=== PATIENT | female | born 1965 | race Caucasian/White ===

== ENCOUNTER 2022-04-12 15:11 | Emergency (ER) | payer OTHER, SELFPAY ==
--- NOTE | ~2022-04-12 | XR_ITS ---
EXAMINATION: XR chest 1V CLINICAL INFORMATION: Reason for Exam pain COMPARISON: None TECHNIQUE: 2 views of the chest FINDINGS: Clear lungs. No pneumothorax or pleural effusion. Normal cardiomediastinal silhouette. XR/XR chest 1V Impression: * Clear lungs.
[2022-04-12 15:13] VITALS: BP 192/89; PULSE 116; RESP 18; TEMP 36.9; O2SAT 98; BMI 29.2
--- NOTE | 2022-04-12 15:15 | ECG_ITS ---
Test Reason : WEAKESS Blood Pressure : / mmHG Vent. Rate : 100 BPM Atrial Rate : 100 BPM P-R Int : 134 ms QRS Dur : 076 ms QT Int : 326 ms P-R-T Axes : 046 002 056 degrees QTc Int : 420 ms Normal sinus rhythm Cannot rule out Inferior infarct , age undetermined Abnormal ECG No previous ECGs available Referred By: Generic ED Physician Electronically Signed By:Major White
[2022-04-12 15:31] LABS: Red Cell Distribution Width 17.2 % (11.0-16.0)
[2022-04-12 15:33] LABS: Hematocrit 37.9 % (37.0-47.0); Hemoglobin 11.7 g/dl (12.0-16.0); Mean Corpuscular HGB Conc 30.9 g/dl (31.0-35.0); Mean Corpuscular Volume 68.2 fL (80.0-98.0); Mean Platelet Volume 11.3 fL (9.4-12.3); Red Blood Count 5.56 X10*6/uL (4.20-5.50)
[2022-04-12 15:44] LABS: PLT ABN DIST 1
[2022-04-12 15:50] LABS: Anion Gap 14 (12-20); Blood Urea Nitrogen 10 mg/dL (9-16); Calcium 9.8 mg/dL (8.4-10.2); Carbon Dioxide 25 mmol/L (22-29); Chloride 104 mmol/L (96-108); Creatinine Clr Calc Pharmacy 72.9; Estimated Glomerular Filt Rate > 60; Glucose Random 114 mg/dL (60-115); Potassium 4.4 mmol/L (3.3-5.1); Sodium 139 mmol/L (135-145)
[2022-04-12 15:58] LABS: Platelet Count 313 X10*3/uL (160-400); Troponin-I High Sensitivity 5.1 ng/L (<3.5-17.0); White Blood Count 9.9 X10*3/uL (4.8-10.8)
--- NOTE | 2022-04-12 17:59 | ED.CHESTPAIN ---
HPI - Chest Pain General Chief Complaint: Chest Pain Stated Complaint: chest pain Time Seen by Provider: 04/12/22 17:59 Source: patient Mode of arrival: ambulatory Limitations: no limitations History of Present Illness MD complaint: chest heaviness Onset (ago): day(s) (3) Timing of current episode: constant Prior episodes: No Onset: during rest Pain location: substernal Pain radiation: none Severity: moderate Quality: heaviness Relieving factors: nothing Exacerbating factors: stress Context: other (recent emotional stress) Associated symptoms: dyspnea and other (restless legs and leg cramping at night) Treatment prior to arrival: none Related Data Previous Rx's Medication Instructions Recorded lorazepam 0.5 mg tablet (Ativan) 0.5 mg PO BEDTIME PRN sleep #3 tabs 04/12/22 Allergies Allergy/AdvReac Type Severity Reaction Status Date / Time Unable to Assess Allergy Verified 04/12/22 18:01 Review of Systems Review of Systems: Constitutional : No Weight loss, No Fever, No Chills ENT/Mouth : No sore throat, No Rhinorrhea Eyes: No Eye Pain, No Swelling Cardiovascular : pos Chest Pain, no SOB, no Dyspnea on Exertion, No Orthopnea, No Edema, No Palpitations Respiratory : No Cough, No Sputum Gastrointestinal : pos Nausea, No Vomiting, No Diarrhea, No abdominal Pain, No Hematochezia, No Melena Genitourinary : No Dysuria, No Urinary Frequency Musculoskeletal : No joint pain, pos Myalgias, No Joint Swelling Skin : No Skin Lesions, No rash Neuro : No Weakness, No Numbness, No Dizziness, No Headache Psych : pos Anxiety/Panic, No Depression Heme/Lymph: No Bruising, No Lymphadenopathy Endocrine : No Polyuria, No Polydipsia All other systems reviewed and are negative [facility] Past Medical History Attestation statement: The following information was validated with the patient. Medical History GERD (gastroesophageal reflux disease) Social History Social History (Updated 04/12/22 @ 18:33 by Cecille Chapin DO) Patient Tobacco Use Status: Never used Tobacco Advance Directives: No Advance Directives Information Provided: No Physical Exam Vital Signs: Vital Signs: Last Vital Signs Temp 99.5 F 04/12/22 18:54 Pulse 90 04/12/22 18:54 Resp 18 04/12/22 18:54 BP 162/72 H 04/12/22 18:54 Pulse Ox 97 04/12/22 18:54 O2 Del Method 04/12/22 18:54 BMI result Body Mass Index 29.2 Appearance: Alert. Oriented X3. No acute distress. Appears anxious Eyes: Pupils equal, round and reactive to light. ENT: Pharynx normal. Neck: Normal inspection. Neck supple. CVS: Normal heart rate and rhythm. Pulses normal. Respiratory: No respiratory distress. Breath sounds normal. Abdomen: Soft and nontender. Skin: Skin warm and dry. Normal skin color. Normal skin turgor. Extremities: No lower extremity edema. No calf ttp Neuro: Oriented X 3. No motor deficit. No sensory deficit. Course Course Course Narrative: nonischemic EKG, trop flat x 2 with 3 days of symptoms ddimer flat, BP down feels better stable for DC MDM - Chest Pain MDM Narrative Medical decision making narrative: 56 yo female with hx of GERD under stress at home - reports chest heaviness x 3 days that is constant and notes it is hard to sleep at night and her legs feels restless. She feels anxious. At this time she thinks this has happened before in the past under stress. At this time seems atypical for ACS will obtain troponin x 2, ddimer, EKG, ativan for anxiety. Dispo per results and findings. Lab Data Result diagrams: 04/12/22 15:25 04/12/22 15:25 Labs: Lab Results 04/12/22 04/12/22 04/12/22 Range/Units 15:25 15:25 15:25 WBC 9.9 (4.8-10.8) X10*3/uL RBC 5.56 H (4.20-5.50) X10*6/uL Hgb 11.7 L (12.0-16.0) g/dl Hct 37.9 (37.0-47.0) % MCV 68.2 L (80.0-98.0) fL MCH 21.0 L (27.0-33.0) pg MCHC 30.9 L (31.0-35.0) g/dl RDW 17.2 H (11.0-16.0) % Plt Count 313 (160-400) X10*3/uL MPV 11.3 (9.4-12.3) fL Absolute Nucleated RBC 0.000 (0.0-0.012) X10*3/uL Nucleated RBC % (auto) 0.0 (0.0-0.2) /100WBC D-Dimer High Sensitivty NG/ML Sodium 139 (135-145) mmol/L Potassium 4.4 (3.3-5.1) mmol/L Chloride 104 (96-108) mmol/L Carbon Dioxide 25 (22-29) mmol/L Anion Gap 14 (12-20) BUN 10 (9-16) mg/dL Creatinine 0.75 (0.5-1.4) mg/dL Estim Creat Clear Calc 72.9 Estimated GFR > 60 Random Glucose 114 (60-115) mg/dL Calcium 9.8 (8.4-10.2) mg/dL Magnesium 1.8 (1.6-2.6) mg/dL Troponin I High Sens 5.1 (<3.5-17.0) ng/L 04/12/22 04/12/22 Range/Units 18:30 18:30 WBC (4.8-10.8) X10*3/uL RBC (4.20-5.50) X10*6/uL Hgb (12.0-16.0) g/dl Hct (37.0-47.0) % MCV (80.0-98.0) fL MCH (27.0-33.0) pg MCHC (31.0-35.0) g/dl RDW (11.0-16.0) % Plt Count (160-400) X10*3/uL MPV (9.4-12.3) fL Absolute Nucleated RBC (0.0-0.012) X10*3/uL Nucleated RBC % (auto) (0.0-0.2) /100WBC D-Dimer High Sensitivty < 150 NG/ML Sodium (135-145) mmol/L Potassium (3.3-5.1) mmol/L Chloride (96-108) mmol/L Carbon Dioxide (22-29) mmol/L Anion Gap (12-20) BUN (9-16) mg/dL Creatinine (0.5-1.4) mg/dL Estim Creat Clear Calc Estimated GFR Random Glucose (60-115) mg/dL Calcium (8.4-10.2) mg/dL Magnesium (1.6-2.6) mg/dL Troponin I High Sens 5.1 (<3.5-17.0) ng/L ECG Data ECG #1: Attestation: I personally reviewed and interpreted this ECG as follows: ECG interpretation date: 04/12/22 ECG interpretation time: 18:00 Interpretation: Rate: 100 Rhythm: NSR [place]: normal Normal P waves. Normal CARLOS. Normal QRS complex. ST T wave : no STEVEN, normal qTC: normal prior studies: no acute ischemia The study has been interpreted contemporaneously by me. . Discharge Plan Discharge Clinical Impression: Atypical chest pain Patient Disposition: Home, Self-Care Instructions: Chest Pain (ED) Additional Instructions: return to ED for any worsening symptoms or concerns please follow up with your doctor next week to have an outpatient stress test Prescriptions: New lorazepam [Ativan] 0.5 mg tablet 0.5 mg PO BEDTIME PRN (Reason: sleep) Qty: 3 0RF Referrals: Selena Valentino PA-C [Primary Care Provider] - 04/14/22 Stand Alone Forms: Work/School Release
[2022-04-12 18:20] LABS: Magnesium 1.8 mg/dL (1.6-2.6)
[2022-04-12 18:45] LABS: D Dimer High Sensitivity < 150 NG/ML
[2022-04-12] MEDS: LORazepam 1 MG TABLET PO (18:52)
[2022-04-12 18:54] VITALS: BP 162/72; PULSE 90; RESP 18; TEMP 37.5; O2SAT 97
[2022-04-12 18:59] LABS: Troponin-I High Sensitivity 5.1 ng/L (<3.5-17.0)
== END 2022-04-12 19:53 | disposition home or self-care (01) ==
PROVIDERS: Emergency Provider Emergency Medicine; PCP Physician Assistant Medical
DX: R07.89 Other chest pain (principal); F41.9 Anxiety disorder, unspecified
CPT/HCPCS: 36415; 71045; 80048; 83735; 84484; 85027; 85379; 93005; 99283